=== PATIENT | male | born 1995 | race Caucasian/White ===

== ENCOUNTER 2018-09-11 13:04 | Emergency (ER) | payer OTHER ==
[2018-09-11] MEDS ORDERED: DICYCLOMINE 10 MG CAP PO ONE (13:19)
[2018-09-11] MEDS ORDERED: ONDANSETRON 4 MG/2 ML VIAL IVP ONE (13:19)
[2018-09-11] MEDS ORDERED: NS 1,000 ML IV ONE ×2 (13:19)
--- NOTE | 2018-09-11 13:23 | EDPHY ---
H & P Smoking Status: Never smoked Time Seen by Provider: 09/11/18 13:05 HPI/ROS: CHIEF COMPLAINT: Abdominal pain and vomiting and diarrhea HISTORY OF PRESENT ILLNESS: Patient tells me he had similar symptoms about a year ago in August of 2017 and had 3 visits the emergency department at [facility] and was admitted on the 3rd visit, but no definite diagnosis. No previous surgical history. No family history of inflammatory bowel disease. No recent travel. Patient presents with symptoms since last night after eating chicken wings. Started with abdominal pain in bilateral lower abdomen feels"like knives"and then got worse at 5:00 a.m. Today with nausea vomiting and diarrhea after trying to drink Emergen-C. The symptoms now are moderate in nature. Worse with oral intake. Pain is bilateral without urinary symptoms or radiation or testicular symptoms. REVIEW OF SYSTEMS: Eye: no change in vision ENT: no sore throat Cardiac: no chest pain or syncope Pulmonary: no cough or SOB Abdomen: HPI Musculoskeletal: no back pain Skin: no rash Neuro: no headache Constitutional: no fever : no urinary symptoms A comprehensive 10 point review of systems is otherwise negative aside from elements mentioned in the history of present illness. PAST MEDICAL HISTORY: Negative except for as above Social history: [place] patient, denies alcohol General Appearance: Alert and conversant, cooperative. Eyes: No scleral icterus. ENT, Mouth: Dry mucous membranes. Respiratory: Normal respiratory effort, breath sounds equal, lungs are clear to auscultation. Cardiovascular: Regular rate and rhythm. Gastrointestinal: Bilateral lower abdominal tenderness without guarding or rebound, no hernia. Normal male with normal testicles. Neurological: Alert, face symmetric, normal motor and sensory in extremities. Skin: Warm and dry, no rashes. Musculoskeletal: No peripheral edema. Psychiatric: Not agitated. Emergency Department course/MDM: Zofran 4 mg IV and Bentyl 20 mg orally. Patient describes the pain is intermittent and crampy. Normal saline 2 L IV for nausea and vomiting. Labs to include CBC chemistry lipase and LFTs. Signed out to Timothy at 1400. (Alex Leung) Constitutional: Initial Vital Signs Temperature (C) 36.4 C 09/11/18 13:06 Heart Rate 77 09/11/18 13:06 Respiratory Rate 18 09/11/18 13:06 Blood Pressure 136/49 H 09/11/18 13:06 O2 Sat (%) 100 09/11/18 13:06 O2 Delivery Mode Room Air Allergies/Adverse Reactions: No Known Allergies Allergy (Unverified 09/11/18 13:05) Home Medications: Medication Instructions Recorded Hydrocodone/APAP 5/325 [[place] 1 - 2 each PO Q6 PRN #20 tab 09/11/18 5/325] Ondansetron Odt [Zofran Odt] 4 mg PO Q4PRN PRN #20 tab 09/11/18 Medical Decision Making - Diagnostics Imaging Results: Imaging Impressions Abdomen CT 09/11/18 14:49 Impression: 1. Fluid-filled small bowel, which could be related to enteritis. 2. Small amount of free fluid in the pelvis, which can also be seen with enteritis. Findings discussed with Naveen Aguirre 09/11/2018 at 15:56. Differential Diagnosis: Differential considered including but not limited to appendicitis, testicular torsion, gastroenteritis, inflammatory bowel disease, Meckel's. (Alex Leung) Differential diagnosis considered includes enteritis, appendicitis, perforation , obstruction (Naveen Aguirre) Other Provider: I assumed care of the patient at 1:40pm I reviewed the patient's laboratory studies at 2:30 p.m. And they are unremarkable. I personally assess the patient and he is continuing to have ongoing severe poorly localized pain. The patient has no prior history of abdominal surgery. He does have a history of undifferentiated abdominal pain with similar presentation nearly a year ago. The patient currently is complaining of 10/10 pain. Toradol has been ordered for the patient. Given his pain and tenderness a CT scan of the abdomen pelvis with IV contrast has been ordered. The patient's CT scan demonstrates enteritis with perforation, obstruction or appendicitis. Re-evaluated the patient again at 4:00 p.m.. The pain is improved after Toradol however not resolved. He continues complaining of 6/10 pain. 1 mg of IV Dilaudid has been ordered. I re-evaluated the patient at 5:00 p.m.. His abdominal examination is reassuring. The patient is tolerating p.o.'s in the ED. The patient will be discharged home with a prescription for Zofran and [place] for presumed enteritis. (Naveen Aguirre) - Data Points Laboratory Results: Laboratory Results 09/11/18 13:45 09/11/18 13:45 09/11/18 09/11/18 13:45 13:45 WBC 6.40 10^3/uL 10^3/uL (3.80-9.50) RBC 5.75 10^6/uL 10^6/uL (4.40-6.38) Hgb 16.4 g/dL g/dL (13.7-17.5) Hct 47.1 % % (40.0-51.0) MCV 81.9 fL fL (81.5-99.8) MCH 28.5 pg pg (27.9-34.1) MCHC 34.8 g/dL g/dL (32.4-36.7) RDW 12.4 % % (11.5-15.2) Plt Count 192 10^3/uL 10^3/uL (150-400) MPV 11.1 fL fL (8.7-11.7) Neut % (Auto) 82.7 % H % (39.3-74.2) Lymph % (Auto) 9.1 % L % (15.0-45.0) [place] % (Auto) 7.5 % % (4.5-13.0) Eos % (Auto) 0.2 % L % (0.6-7.6) Baso % (Auto) 0.3 % % (0.3-1.7) Nucleat RBC Rel Count 0.0 % % (0.0-0.2) Absolute Neuts (auto) 5.29 10^3/uL 10^3/uL (1.70-6.50) Absolute Lymphs (auto) 0.58 10^3/uL L 10^3/uL (1.00-3.00) Absolute Monos (auto) 0.48 10^3/uL 10^3/uL (0.30-0.80) Absolute Eos (auto) 0.01 10^3/uL L 10^3/uL (0.03-0.40) Absolute Basos (auto) 0.02 10^3/uL 10^3/uL (0.02-0.10) Absolute Nucleated RBC 0.00 10^3/uL 10^3/uL (0-0.01) Immature Gran % 0.2 % % (0.0-1.1) Immature Gran # 0.01 10^3/uL 10^3/uL (0.00-0.10) RBC/WBC/PLT Morphology TNP Platelet Estimate TNP Sodium 138 mEq/L mEq/L (135-145) Potassium 3.8 mEq/L mEq/L (3.3-5.0) Chloride 103 mEq/L mEq/L (97-110) Carbon Dioxide 25 mEq/l mEq/l (22-31) Anion Gap 10 mEq/L mEq/L (6-14) BUN 22 mg/dL mg/dL (7-23) Creatinine 1.0 mg/dL mg/dL (0.7-1.3) Estimated GFR > 60 Glucose 89 mg/dL mg/dL (70-100) Calcium 9.1 mg/dL mg/dL (8.5-10.4) Total Bilirubin 0.8 mg/dL mg/dL (0.1-1.4) Conjugated Bilirubin 0.2 mg/dL mg/dL (0.0-0.5) Unconjugated Bilirubin 0.6 mg/dL mg/dL (0.0-1.1) AST 41 IU/L IU/L (17-59) ALT 50 IU/L IU/L (21-72) Alkaline Phosphatase 78 IU/L IU/L (38-126) Total Protein 7.2 g/dL g/dL (6.3-8.2) Albumin 4.3 g/dL g/dL (3.5-5.0) Lipase 80 IU/L IU/L (23-300) Medications Given: Discontinued Medications Dicyclomine HCl (Bentyl) 20 mg PO EDNOW ONE Stop: 09/11/18 13:20 Last Admin: 09/11/18 13:49 Dose: 20 mg Hydromorphone HCl (Dilaudid) 1 mg IVP EDNOW ONE Stop: 09/11/18 16:21 Last Admin: 09/11/18 16:21 Dose: 1 mg Sodium Chloride (Ns) 1,000 mls @ 0 mls/hr IV EDNOW ONE; Wide Open PRN Reason: Protocol Stop: 09/11/18 13:20 Last Admin: 09/11/18 13:48 Dose: 1,000 mls Sodium Chloride (Ns) 1,000 mls @ 0 mls/hr IV EDNOW ONE; Wide Open PRN Reason: Protocol Stop: 09/11/18 13:20 Last Admin: 09/11/18 14:20 Dose: 1,000 mls Ketorolac Tromethamine (Toradol) 15 mg IVP EDNOW ONE Stop: 09/11/18 14:49 Last Admin: 09/11/18 15:02 Dose: 15 mg Ondansetron HCl (Zofran) 4 mg IVP EDNOW ONE Stop: 09/11/18 13:20 Last Admin: 09/11/18 13:49 Dose: 4 mg Departure - Departure Disposition: Home, Routine, Self-Care Clinical Impression: Abdominal pain Qualifiers: Abdominal location: lower abdomen, unspecified Qualified Code(s): R10.30 - Lower abdominal pain, unspecified Condition: Good Instructions: Acute Abdominal Pain (ED) Additional Instructions: 1. Sometimes we are unable to diagnose an obvious cause of abdominal pain in the Emergency Department. Based upon our evaluation today, I believe your having symptoms secondary to a mild viral infection with associated inflammation. Because more serious conditions can be difficult to diagnose early in the course of their presentation, we ask that you return to the Emergency Department in 8-12 hours for a recheck if you are still having pain. This is necessary to exclude the development of a more serious condition such as appendicitis or other intra-abdominal emergency. In the event your pain markedly increases before that time or you develop intractable vomiting or fever return to the Emergency Department immediately. 2. Take Ibuprofen or Motrin 600 mg by mouth three times a day. 3. Zofran as needed for nausea 4. [place] as needed for severe pain Referrals: [facility] ,. [Edm Groups for Call Sched] - As per Instructions Prescriptions: Hydrocodone/APAP 5/325 [Racine 5/325] 1 - 2 each PO Q6 PRN #20 tab PRN Reason: for pain Ondansetron Odt [Zofran Odt] 4 mg PO Q4PRN PRN #20 tab PRN Reason: For Nausea
[2018-09-11 14:06] LABS: PLATELET COUNT 192 10^3/uL (150-400)
[2018-09-11] MEDS ORDERED: KETOROLAC 15 MG/1 ML SDV IVP ONE (14:48)
[2018-09-11] MEDS ORDERED: IOPAMIDOL (ISOVUE-300) 100 ML BTL ONE (14:55)
[2018-09-11] MEDS ORDERED: HYDROmorphONE/DILAUDID 1 MG/ML INJ ONE (16:15)
[2018-09-11] MEDS ORDERED: HYDROmorphONE/DILAUDID 2 MG/ML INJ IVP ONE (16:20)
[2018-09-11 17:02] VITALS: BP 110/66
== END 2018-09-11 17:01 | disposition home or self-care (01) ==
DX: R10.30 Lower abdominal pain, unspecified (principal); E86.9 Volume depletion, unspecified
CPT/HCPCS: 96374; J1170; J1885; J2405; Q9967